=== PATIENT | female | born 2000 | race African-American/Black ===

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

== ENCOUNTER → 2022-02-01 | Outpatient (CLI) | payer MEDICAID, SELFPAY ==
[2022-02-01 16:14] LABS: Erythrocyte Sedimentation Rate 8 mm/hr (0-30)
[2022-02-01 16:17] LABS: Absolute Lymphocyte Count 2.48 X10^3/uL (0.83-4.51); Absolute Neutrophil Count 3.3 X10^3/uL (2.0-7.7); Basophil# 0.05 X10^3/uL; Basophil% 0.8 % (0-1); Eosinophils% 3.2 % (0-5); Hematocrit 35.7 % (37-47); Hemoglobin 11.3 g/dL (12.0-15.0); Lymphocyte # 2.48 X10^3/ul (0.83-4.51); Lymphocyte % 39.5 % (19-41); Mean Corp Hgb Conc 31.7 g/dL (32-36); Mean Corpuscular Hgb 27.7 pg (27.0-32.0); Mean Corpuscular Volume 87.5 fL (81-99); Mean Platelet Vol. 11.8 fl (6.2-12.0); Monocyte# 0.27 X10^3/uL; Monocyte% 4.3 % (0-10); NRBC Flagged by Analyzer 0 % (0-5); Neutrophil # 3.26 X10^3/uL (2.7-7.7); Neutrophil % 51.9 % (47-70); Platelet Count 278 K/mm3 (150-450); RBC Distribution Width CV 12.3 % (11.6-14.6); RBC Distribution Width SD 39.7 fl (35.1-43.9); Red Blood Count 4.08 M/mm3 (4.2-5.4); White Blood Count 6.3 K/mm3 (4.4-11.0)
[2022-02-01 16:35] LABS: Vitamin B12 679 pg/mL (211-911); Vitamin D,25 Hydroxy 10.5 ng/mL
[2022-02-01 16:42] LABS: ALB/GLOB Ratio 1.1 RATIO (0.9-2.4); AST(SGOT) 7 U/L (15-37); Alanine Aminotransfer ALT/SGPT 19 U/L (13-56); Albumin, Serum 3.9 g/dL (3.2-5.0); Alkaline Phosphatase 67 U/L (45-117); Anion Gap 5 (5-15); BUN 6 mg/dL (7-18); BUN/Creat Ratio 7.7 RATIO (10-20); CRP < 2.90 mg/L (0.0-3.0); Calcium,Total 8.5 mg/dL (8.5-10.1); Chloride 107 mmol/L (98-107); Creatinine, Serum 0.78 mg/dL (0.55-1.02); EST Glomerular Filtration Rate 100 mL/min (>60); Est Glom Filt Rate - Afr Amer 121 mL/min (>60); Free T3 2.8 pg/mL (2.18-3.98); Globulin 3.7 g/dL (2.2-4.2); Glucose 84 mg/dL (74-106); LDH 133 U/L (84-246); Potassium 3.9 mmol/L (3.5-5.1); Protein, Total 7.6 g/dL (6.4-8.2); Sodium Level 138 mmol/L (136-145); T4 Free Direct 1.05 ng/dL (0.76-1.46); Thyroid Stim Hormone (TSH) 1.26 uIU/mL (0.358-3.74)
[2022-02-03 13:08] LABS: Anti-Centromere B Ab <0.2 AI (0.0-0.9); Anti-Chromatin <0.2 AI (0.0-0.9); Anti-Jo <0.2 AI (0.0-0.9); Anti-Scleroderma-70 AB <0.2 AI (0.0-0.9); RNP Ab <0.2 AI (0.0-0.9); SJOGREN'S Anti-SS-A test < 0.2 AI (0.0-0.9); SJOGREN'S Anti-SS-B test < 0.2 AI (0.0-0.9); Smith Ab <0.2 AI (0.0-0.9)
[2022-02-03 15:08] LABS: Endomysial Antibody IgA Negative (Negative)
[2022-02-03 15:30] LABS: Anti-dsDNA Ab <1 IU/mL (0-9)
[2022-02-03 15:34] LABS: Immunoglobulin A 217 mg/dL (87-352); t-Transglutaminase IgA <2 U/mL (0-3)
[2022-02-11 14:10] LABS: Albumin 4.3 g/dL (2.9-4.4); Alpha-1-Globulins 0.2 g/dL (0.0-0.4); Alpha-2-Globulins 0.7 g/dL (0.4-1.0); Cytoplasmic Ab (C-ANCA) <1:20 titer (Neg:<1:20); Gamma Globulin 1.5 g/dL (0.4-1.8); Immunoglobulin A 201 mg/dL (87-352); Immunoglobulin E 82 IU/mL (6-495); Immunoglobulin G 1611 mg/dL (719-1475); Immunoglobulin M 40 mg/dL (58-230); PROEL- TOTAL PROTEIN 7.5 g/dL (6.0-8.5)
[2022-02-12 07:52] LABS: Perinuclear Ab (P-ANCA) <1:20 titer (Neg:<1:20)
== END | disposition home or self-care (01) ==
PROVIDERS: Visit Provider Internal Medicine Gastroenterology
DX: R19.5 Other fecal abnormalities (principal)
CPT/HCPCS: 36415; 80053; 82306; 82607; 82784; 82785; 83516; 83615; 84165; 84439; 84443; 84481; 85025; 85652; 86140; 86225; 86235; 86255; 86256; 86334

== ENCOUNTER → 2023-09-25 | Outpatient (CLI) | payer MEDICAID, SELFPAY ==
[2023-09-25 09:27] LABS: Mean Corp Hgb Conc 32.4 g/dL (32-36); Mean Corpuscular Hgb 27.3 pg (27.0-32.0); Mean Corpuscular Volume 84.4 fL (81-99); Platelet Count 206 K/mm3 (150-450); RBC Distribution Width CV 11.9 % (11.6-14.6); RBC Distribution Width SD 36.3 fl (35.1-43.9); Red Blood Count 4.03 M/mm3 (4.2-5.4); White Blood Count 7.1 K/mm3 (4.4-11.0)
[2023-09-25 10:19] LABS: hCG Titer Quant., Serum 69321 mIU/mL (1-3)
== END | disposition home or self-care (01) ==
LOC: LAB.FUTURE 08:31 → LAB 08:34
PROVIDERS: Referring Provider Obstetrics & Gynecology; Visit Provider Obstetrics & Gynecology
DX: O20.0 Threatened abortion (principal); Z3A.00 Weeks of gestation of pregnancy not specified
CPT/HCPCS: 36415; 84702; 85027

== ENCOUNTER → 2024-01-22 | Outpatient (CLI) | payer MEDICAID, SELFPAY ==
[2024-01-22 15:34] LABS: Absolute Lymphocyte Count 1.66 X10^3/uL (0.83-4.51); Absolute Neutrophil Count 6.2 X10^3/uL (2.0-7.7); Basophil# 0.03 X10^3/uL; Basophil% 0.4 % (0-1); Eosinophils% 1.2 % (0-5); Hematocrit 28.9 % (37-47); Hemoglobin 9.1 g/dL (12.0-15.0); Lymphocyte # 1.66 X10^3/ul (0.83-4.51); Lymphocyte % 19.6 % (19-41); Mean Corp Hgb Conc 31.5 g/dL (32-36); Mean Corpuscular Hgb 27.4 pg (27.0-32.0); Mean Platelet Vol. 11.9 fl (6.2-12.0); Monocyte# 0.46 X10^3/uL; Monocyte% 5.4 % (0-10); NRBC Flagged by Analyzer 0 % (0-5); Neutrophil # 6.17 X10^3/uL (2.7-7.7); Neutrophil % 72.7 % (47-70); Platelet Count 198 K/mm3 (150-450); RBC Distribution Width CV 12.3 % (11.6-14.6); RBC Distribution Width SD 38.9 fl (35.1-43.9); Red Blood Count 3.32 M/mm3 (4.2-5.4); White Blood Count 8.5 K/mm3 (4.4-11.0)
[2024-01-22 15:58] LABS: Glucose Challenge Gest 1H 50g 90 mg/dL (70-140)
[2024-01-22 16:21] LABS: Syphilis Antibodies Non-reactive
== END | disposition home or self-care (01) ==
LOC: LAB 13:18
PROVIDERS: Referring Provider Advanced Practice Midwife; Visit Provider Advanced Practice Midwife
DX: Z34.02 Encounter for supervision of normal first pregnancy, second trimester (principal); Z3A.25 25 weeks gestation of pregnancy
CPT/HCPCS: 36415; 82950; 85025; 86780

== ENCOUNTER 2024-03-15 05:31 | Inpatient (IN) | payer MEDICAID, SELFPAY ==
[2024-03-15] VITALS (48 sets, daily range): BP systolic 101–129; BP diastolic 50–79; PULSE 75–130; RESP 16–20; TEMP 36.3–37; O2SAT 77–100; BMI 25.9
[2024-03-15 05:12] LABS: ROM Internal Control Test YES-OK TO RESULT pt. (Internal QC)
[2024-03-15 05:13] LABS: ROM Patient Test POSITIVE (Negative); Record Kit Lot#, ROM+ K1972
[2024-03-15] MEDS: 0.9% Saline Lock 10 ML Syringe IV ×2 (05:50→06:44)
[2024-03-15] MEDS: Penicillin G Pot 5,000,000 UNITS in 0.9% Normal Saline (100mL MB+) 100 ML 150 UNITS IV (05:59)
[2024-03-15] MEDS: miSOPROStol 25 MCG TABLET PO (06:11)
[2024-03-15] MEDS: Betamethasone/Betamethasone 30 MG/5 ML Vial 12 MG IM (06:19)
[2024-03-15 06:28] LABS: Absolute Lymphocyte Count 2.62 X10^3/uL (0.83-4.51); Absolute Neutrophil Count 5.9 X10^3/uL (2.0-7.7); Basophil# 0.05 X10^3/uL; Basophil% 0.5 % (0-1); Eosinophil# 0.14 X10^3/uL; Eosinophils% 1.5 % (0-5); Hematocrit 31.2 % (37-47); Hemoglobin 10.1 g/dL (12.0-15.0); Lymphocyte # 2.62 X10^3/ul (0.83-4.51); Lymphocyte % 27.9 % (19-41); Mean Corp Hgb Conc 32.4 g/dL (32-36); Mean Corpuscular Hgb 26.9 pg (27.0-32.0); Mean Corpuscular Volume 83.2 fL (81-99); Mean Platelet Vol. 12.4 fl (6.2-12.0); Monocyte# 0.55 X10^3/uL; Monocyte% 5.9 % (0-10); NRBC Flagged by Analyzer 0 % (0-5); Neutrophil # 5.89 X10^3/uL (2.7-7.7); Neutrophil % 62.6 % (47-70); Platelet Count 218 K/mm3 (150-450); RBC Distribution Width CV 12.9 % (11.6-14.6); RBC Distribution Width SD 38.5 fl (35.1-43.9); Red Blood Count 3.75 M/mm3 (4.2-5.4); White Blood Count 9.4 K/mm3 (4.4-11.0)
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
[2024-03-15 07:48] LABS: Syphilis Antibodies Non-reactive
[2024-03-15 08:07] LABS: Amphetamine Urine VISTA NEGATIVE (<1000 ng/mL); Barbiturate Urine VISTA NEGATIVE (< 200 ng/mL); Benzodiazepine Urine VISTA NEGATIVE (< 200 ng/mL); Cocaine Urine VISTA NEGATIVE (< 300 ng/mL); Ecstacy Urine VISTA NEGATIVE (< 500 ng/mL); Methadone Urine VISTA NEGATIVE (< 300 ng/mL); PCP Urine VISTA NEGATIVE (< 25 ng/mL); THC Urine VISTA POSITIVE (< 50 ng/mL); Vista UDS pH Range 5
[2024-03-15] MEDS: Lactated Ringers 1,000 ML 50 ML IV (09:10)
[2024-03-15] MEDS: Lactated Ringers 1,000 ML 999 ML IV (09:11)
[2024-03-15 09:22] LABS: Group B Strep DNA By PCR Negative (Negative); Internal Control PASS; Probe Check PASS; Specimen Processing Control PASS
[2024-03-15] MEDS: fentaNYL-bupivacaine (epidural) 100 ML BAG EPIDURAL (09:51)
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
[2024-03-15] MEDS: Penicillin G 3,000,000 Units 50 ML 100 UNITS IV (10:24)
--- NOTE | 2024-03-15 11:26 | PLAC_PTH ---
PATIENT: SHANE GIBBS LOC: WP U#:[id number] AGE/SX: ROOM: WP007 RE03/15/[address]: Dr. Felisha Camarena DO : 2000 BED: 1 DIS: 03/17/2024 SPEC #: [id number] RECD: 03/15/24 12:36 STATUS: CHRISTIANO ENGLISH #: [id number] IRMA: 03/15/24 11:[address]: Felisha Camarena DEPT: SURGICAL PATHOLOGY RECD BY: Osito Bravo ENTERED: 03/17/24 10:02 SP TYPE: PLACENTA OTHR DR: Delmi [facility] Tissues: Placenta, NOS Procedures: Surgery Specimen Level V HEADER OPERATION: Vaginal delivery PRE-OP DIAGNOSIS: TISSUE SUBMITTED: Placenta MICROSCOPIC DIAGNOSIS Placenta: Placental disc - third trimester placenta (419 gm). Membranes - no pathologic diagnosis. Umbilical cord - three blood vessels and no pathologic diagnosis. SJ: 03/18/2024 MICROSCOPIC DESCRIPTION Slides are reviewed. GROSS DESCRIPTION SPECIMEN: PLACENTA / CLINICAL INFORMATION: A. Weight: 2.39 kg B. Gestational Age: 35 weeks C. Sex: Male PLACENTAL WEIGHT (POST FIXATION): 419 gm PLACENTAL DIMENSIONS: 15 x 15 x 3 cm PLACENTAL SHAPE: Usual ovoid PLACENTAL WEIGHT FOR GESTATIONAL AGE: Within 10-99th percentile MEMBRANES - Present A. Insertion: Marginal B. Site of rupture from edge: 3 cm from edge of placental disc C. Color of membrane: Aguilar-humphreys D. Abnormalities: None UMBILICAL CORD - Present A. Color: Aguilar-humphreys B. Insertion: Marginal C. Length: 40 cm D. Diameter: 1 cm E. Number of vessels: Three F. Abnormalities: None PLACENTAL DISC - Present A. Color of surface: Aguilar-humphreys B. surface abnormalities: None C. Maternal cotyledons: Intact with minimal tears D. Attached retro placental clot: No clot E. Cut surface: Dark red and spongy F. Lesions: None G. Separate clot: Absent SECTIONS SUBMITTED: 1. Membrane roll 2. Cord, maternal end 3. Cord, end 4. Placental disc, and maternal surfaces 5. Placental disc, and maternal surfaces 6. Placental disc, and maternal surfaces /SIERRA:shawna 03/17/24 TC:4 CPT: 34993
--- NOTE | 2024-03-15 11:26 | PLAC_PTH ---
PATIENT: SHANE GIBBS LOC: WP U#:[id number] AGE/SX: ROOM: WP007 RE03/15/[address]: Dr. Felisha Camarena DO : 2000 BED: 1 DIS: 03/17/2024 SPEC #: [id number] RECD: 03/15/24 12:36 STATUS: CHRISTIANO ENGLISH #: [id number] IRMA: 03/15/24 11:[address]: Felisha Camarena DEPT: SURGICAL PATHOLOGY RECD BY: Osito Bravo ENTERED: 03/17/24 10:02 SP TYPE: PLACENTA OTHR DR: Del[facility] Tissues: Placenta, NOS Procedures: Surgery Specimen Level V HEADER OPERATION: Vaginal delivery PRE-OP DIAGNOSIS: TISSUE SUBMITTED: Placenta MICROSCOPIC DIAGNOSIS Placenta: Placental disc - third trimester placenta (419 gm). Membranes - no pathologic diagnosis. Umbilical cord - three blood vessels and no pathologic diagnosis. SJ: 03/18/2024 MICROSCOPIC DESCRIPTION Slides are reviewed. GROSS DESCRIPTION SPECIMEN: PLACENTA / CLINICAL INFORMATION: A. Weight: 2.39 kg B. Gestational Age: 35 weeks C. Sex: Male PLACENTAL WEIGHT (POST FIXATION): 419 gm PLACENTAL DIMENSIONS: 15 x 15 x 3 cm PLACENTAL SHAPE: Usual ovoid PLACENTAL WEIGHT FOR GESTATIONAL AGE: Within 10-99th percentile MEMBRANES - Present A. Insertion: Marginal B. Site of rupture from edge: 3 cm from edge of placental disc C. Color of membrane: Aguilar-humphreys D. Abnormalities: None UMBILICAL CORD - Present A. Color: Aguilar-humphreys B. Insertion: Marginal C. Length: 40 cm D. Diameter: 1 cm E. Number of vessels: Three F. Abnormalities: None PLACENTAL DISC - Present A. Color of surface: Aguilar-humphreys B. surface abnormalities: None C. Maternal cotyledons: Intact with minimal tears D. Attached retro placental clot: No clot E. Cut surface: Dark red and spongy F. Lesions: None G. Separate clot: Absent SECTIONS SUBMITTED: 1. Membrane roll 2. Cord, maternal end 3. Cord, end 4. Placental disc, and maternal surfaces 5. Placental disc, and maternal surfaces 6. Placental disc, and maternal surfaces /SIERRA:shawna 03/17/24 TC:4 CPT: 03867
[2024-03-15] MEDS: Oxytocin 10 UNITS/ML Vial IM (11:38)
--- NOTE | 2024-03-15 11:55 | EX.PCM.OBVAG ---
Assessment & Plan (1) Vaginal delivery: Vaginal Delivery Maternal Presentation Maternal Presentation: Spontaneous Rupture of Membranes Type of Induction: Cytotec (one dose) Medical Reason for Induction: Premature Rupture of Membranes Vaginal Delivery Information Procedure Performed: Spontaneous Vaginal Delivery Surgeon/Practitioner: Felisha Camarena Date of Procedure: 03/15/24 Pre-Procedure Diagnosis: 35 week gestation, PPROM Post-Procedure Diagnosis: As above Type of anesthesia: Epidural Special Medications: None Estimated Blood Loss: 100 Fluids Replaced: N/A Findings Description of procedure: Patient complete and pushing initially in right lateral position, and then dorsal lithotomy. Head of delivered in KG position. Shoulders and body delivered spontaneously without any traction, force or delay. A vigorous VMI was placed on maternal abdomen. The cord was clamped and cut after a 60 second delay by the FOB. Cord blood obtained. Cord gases unable to be obtained. Placenta spontaneously delivered and was normal appearing, and intact with a 3VC. Patient initially declining Pitocin but passing small blood clots with fundal massage so agreeable to IM Pitocin. IM Pitocin given. Fundus firm and bleeding scant. A left labial laceration was noted to be bleeding. Two interrupted stitches were placed using 3-0 Vicryl to achieve hemostasis. Fundus remained firm and bleeding scant. Sponge counts were correct and a vaginal sweep performed. Procedure findings: Vigorous VMI in KG position. Apgars 9, 9. Left labial laceration. Presentation: Vertex Amniotic Membrane Rupture Type: Spontaneous Amniotic Fluid Description: Clear Placental Delivery Description: Spontaneous Placenta Disposition: Sent to Pathology Cord Vessel Description: 3 Vessels Cord Entanglement: None A Gender: Male (1 minute): 9 (5 minute): 9 Delayed Cord Clamping: Yes Learning Support Resource Room Teacher dinkey mechanic: No Post Vaginal Deli Medications given after delivery: IM Pitocin Episiotomy Description: None Complication Complications: No
[2024-03-16 00:10] VITALS: BP 124/78; PULSE 87; RESP 16; TEMP 36.9; O2SAT 99
[2024-03-16 04:55] VITALS: BP 134/77; PULSE 69; RESP 16; TEMP 36.6; O2SAT 100
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
[2024-03-16 07:48] VITALS: BP 97/64; PULSE 93; RESP 16; TEMP 37; O2SAT 100
[2024-03-16 14:00] VITALS: BP 112/59; PULSE 66; RESP 18; TEMP 36.6; O2SAT 99
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
--- NOTE | 2024-03-16 15:15 | CASEMGMT ---
Social Work Assessment Labor and Delivery Unit Patient Address: [address], [place] [address] Phone number: Date of Referral: 03/15/2024 Time of Referral: 07:19 Referred By: Felisha Camarena Date of Intervention: 03/16/2024 Time of Intervention: 15:17 Reason for Referral: Other: History of marijuana use, parents are addicts/alcoholics/mental health History obtained from: Medical records, and mother of baby (MOB). Household composition: MOB (Agueda, age 21), Father of baby (FOB) (Shaheed Jett, age 21) and son Shaheed Jett Jr., born 03/15/2024 Patient's parent/guardian status: MOB and FOB have been together for almost 3 years and are engaged to be on March 262024. ?Both are actively involved and will be providing care for baby. MOB denied any concerns with domestic violence and described a positive and supportive relationship with the FOB. Medical History: : 1, Para, now 1. MOB received care through [facility] beginning at 13 weeks, 4 days and appointments were observed to be consistent/routine. Apgars: 9 and 9. Weight: 5lbs, 4oz. Geographic Information System Surveyor: Tentative: Dr. Manzo through [facility] in [place] however MOB reported this may change. ? Educational Status: MOB denied any issues or concerns with reading or writing either with herself or with the FOB. MOB has had some college at the [employer] and is planning to go back to college and graduate and the FOB is currently enrolled in college and is expected to graduate in July of 2024. Financial Status: MOB reported their income is sufficient to meet the needs of their family at this time. MOB is planning on being a [id number] mom for now and the FOB also works signal timer selling [employer]. FOB?s work schedule is stated to be flexible. Infant Supplies: MOB reported she and the FOB are in the process of securing all the supplies they need for baby. MOB reported she was not expecting to go into labor early and was supposed to be getting a car seat, a bassinet and more clothing for for Juan Carlos presents so the FOB was out getting these last minute things at the time the assessment was being completed. MOB reported has diapers and bottles and some clothing for and is working on getting a breast pump through the insurance [employer]. Childcare/Caregiver(s): TOBIAS identified herself as the person who will be the primary caregiver considering for now as a [id number] mom. The FOB will assist with childcare and support to the MOB during the times he is not working or in school. Transportation:? TOBIAS reported that both she as well as the FOB are both licensed drivers and have a reliable vehicle to take baby to and from all medical appointments. No transportation issues identified. Programs/Agencies Involved: TOBIAS is currently getting Medicaid through [email or web address] and [facility]. TOBIAS stated by the time she could apply for monge and food stamps that she and the FOB will be and they will be over-income for additional benefits. TOBIAS reported she used to be involved in counseling in order to get an ADHD diagnosis so she could concentrate more in school however hasn?t been to counseling since 2021. TOBIAS reported she used to be on Vyvanse however didn?t like the way it made her feel so she stopped taking it. No other agencies previously or currently involved. Children Services/Legal Issues:? Denied. Behavioral Health Issues: ??Mental Health History: TOBIAS reported she has a history of PTSD which is likely CPTSD, depression and anxiety. In September of 2023, TOBIAS reported she had started to feel hopeless, and had thoughts of wanting to self-harm however stated she has been able to since start engaging in self-care, engage in mental re-focusing and denied any current suicidal ideation. tar pot worker encouraged TOBIAS to get connected with a mental health therapist which MOB stated she is already in the process of attempting to secure. ??MOB denied needing any assistance at this time with getting connected. Substance Use History: TOBIAS?s UDS was positive for cannabinoids. MOB previously reported that she last used in March of 2023, MOB told this social worker palliative care that she last used in in September from this year and when social worker palliative care had a conversation about the timeframe of how long this will show up positive in this type of drug screen, TOBIAS admitted to ?hitting? the FOB?s brother?s pen that has a higher concentration of THC.? MOB stated she had lost her appetite and hadn?t been able to eat a lot and was hoping that would help.? MOB reported for the past 4 years, she used to smoke marijuana several times a day but has no plans of continuing to smoke marijuana. MOB stated she has realized that she needs to start working towards steps of addressing her mental health needs/trauma from the past rather than smoking marijuana to cover it up. MOB reported she also used to occasionally vape however reported she hasn?t vaped since May of 2023. MOB reported that the FOB smokes marijuana occasionally and also takes edibles. Probation Worker provided education. ??Family History: MOB stated both her mother and father were drug addicts, and that her mother used heavy drugs with the MOB in utero.? MOB reported her father has previously been arrested and charged with possession with intent to sell. [place]?s maternal grandmother (MGM) ?last August or September? and MOB doesn?t have any contact with her father who continues to reside in [place]. MOB reported she was raised by her maternal aunt which MOB described as traumatic and MOB denied any contact with her maternal aunt at this time.? MOB described herself as estranged from her family. ?MOB suspects her mother was autistic and ADHD and suspects her aunt is bi-polar however couldn?t confirm if these were ever formal diagnoses or not. FOB?s brother uses marijuana. No other reported family history of mental health or drug or alcohol abuse within the family. ?Drug Screens: MOB: Positive for cannabinoids on 03/15/24.? [place]: meconium results pending. ?tar pot worker administered the Lolita.? MOB?s score was 8. There was one part where MOB checked ?hardly ever? for thoughts of harming self which MOB confirmed was from September of 2023 which was already discussed. MOB confirmed no current SI. ?tar pot worker provided verbal education about the screening tool as well as scores to look out for in the future which MOB reported she understood. Family/Social Stressors: ?MOB has had a plan to finish college and has career goals for herself and struggled for a while adjusting to being and how having a baby would make it harder to accomplish those goals. No support on the maternal side of the family. Support Systems: Ample.? MOB identified her biggest supports as the FOB and FOB?s family (FOB?s mom, dad and 3 younger siblings). MOB also reported she has a friend group who is an added support. Depression/Shaken Baby/Safe Sleeping: tar pot worker provided verbal and written education on PPD, Safe Sleeping and Shaken Baby.? MOB verbalized an understanding. ??? ASSESSMENT: MOB provided consent to social work visit. Upon arrival, nurse was just leaving the room and handed to the MOB who began to swaddle and MOB held throughout the visit and kept talking about how beautiful was. MOB was verbally engaged, presented with a bright affect and was very cooperative.? MOB appeared to be attached and bonded to and was very gentle and attentive with . MOB reported feeling safe in her home and denied any previous or current domestic violence. Safe Plan of Care for infant related to substance use: MOB was educated about and marijuana use and encouraged patient to discuss with medial team possible implications for if MOB is still showing positive for drugs in her system to ensure that is not being passed on to . MOB reported she will have that conversation with her nurse and also stated she has made the decision to stop smoking marijuana so that she can focus on college and giving her the best life she can give him. ? PLAN:? Baby to be discharged home when ready. MOB reported the is going much better. ??tar pot worker also provided written information on depression, depression resources and Help Me Grow as additional resources offered by social worker palliative care which MOB accepted. No other services requested or indicated. Per required mandate, social worker palliative care will make a referral to Children Services due to MOB testing positive for drugs at . Bertha Gustafson, SUPERINTENDENT STEVEDORING, MANAGER PROGRAMMING
--- NOTE | 2024-03-16 18:13 | CASEMGMT ---
Social Work: Parachute Harness Rigger made phone contact with Kathrin from [facility] and made mandated referral. No referral number. Bertha Gustafson MSW SUPERVISOR ROVING DEPARTMENT
--- NOTE | 2024-03-16 18:13 | CASEMGMT ---
Social Work: Director Executive Communications made phone contact with Kathrin from [facility] and made mandated referral. No referral number. Bertha Gustafson MSW CHURCH COMMUNICATIONS ADMINISTRATOR
[2024-03-16 19:50] VITALS: BP 104/61; PULSE 74; RESP 16; TEMP 37
[2024-03-17 02:53] VITALS: BP 111/72; PULSE 76; RESP 16
--- NOTE | 2024-03-17 08:33 | PCM.PN.BLA ---
Progress Note Pain well-controlled. Average lochia. Physical Exam Const alert and no apparent distress Narrative: Fundus firm, below umbilicus. Assessment & Plan Assessment/Plan (1) Vaginal delivery: PLAN: Plan day #2 status post vaginal delivery at 35 weeks. Patient is doing well. is breast-feeding and doing well. Desires discharge home today.
--- NOTE | 2024-03-17 08:36 | DS.PCM_ITS ---
Providers Date of Admission: 03/15/24 Primary Care Physician: [facility] Reason For Visit: VAGINAL DELIVERY Diagnosis Discharge Diagnosis (1) Vaginal delivery: Status: Acute Code(s): O80 - Encounter for full-term uncomplicated delivery Plan day #2 status post vaginal delivery at 35 weeks. Patient is doing well. is breast-feeding and doing well. Desires discharge home today. Medications at Discharge Home Medications beef liver PO DAILY 03/15/24 vit no.95-ferrous fumarate 28 mg-folic acid 800 mcg tablet () 1 tab PO DAILY 03/15/24 acetaminophen 500 mg tablet (Acetaminophen Extra Strength) 1,000 mg (2 x 500 mg) PO Q8H PRN PRN fever or pain 30 days #60 tabs 03/17/24 ibuprofen 600 mg tablet 600 mg PO Q6H PRN Pain 30 days #60 TABLETS 03/17/24 Hospital Course Operations None Procedures None Summary of Care Provided Minutes Spent on Discharge: 21 Hospital Course: 23-year-old female admitted at 35 weeks for PPROM. She was admitted on 03/15/2024. She has spontaneous vaginal delivery on 03/15/2024. By day #2 she was ambulating, urinating had had a bowel movement was ready for discharge with routine instructions and follow-up. Follow-up in the office within 1 week or as needed. Weight / BMI Weight Weight: 75.296 kg Body Mass Index (BMI) 25.9 ABG / Lab / Microbiology Data 03/15/24 05:50 Laboratory: Laboratory Results - last 24 hr 03/15/24 06:51: Antibody Screen NEGATIVE D/C Instructions Discharge Diet: No restrictions May resume sexual activity in: 6 weeks Call your doctor if your incision/area has: Continuous Slow Oozing, Sudden Increased Bleeding, Foul Smelling Discharge and Swelling at the incision site Call your doctor if you observe: Fever of 101 or Higher and Inability to urinate DC O2, CPAP, BIPAP Needs Home O2 Discharge instructions: No Please Follow Up With: Felisha Camarena DO When: Follow up with our office in 1-2 and 6 weeks or as needed. call or send a [employer] message [phone] Meaningful Use Info Meaningful Use Meaningful Use Diagnoses (Choose all that apply): None applicable Ischemic Stroke Statin Dosing Therapy Reference: STATIN DOSE THERAPY REFERENCE: * Patients > 75 years receive moderate or high dose statin therapy. * Patients 75 years or YOUNGER should receive HIGH intensity statin dose unless contraindicated. You will be required to document reason for non-treatment if statin daily dose does not meet guidelines. HIGH DOSE STATIN THERAPY DAILY Atorvastatin > than or = to 40 mg Rosuvastatin > than or = to 20 mg Amlodipine + Atorvastatin > than or = to 2.5/40 mg Ezetimibe + Simvastatin 10/80 mg Simvastatin 80mg Discharge Plan Admission Admit Date/Time: 03/15/24 05:31 Primary Reason for Your Visit: Vaginal delivery Attending Provider: Felisha Camarena [facility] Orders/Prescriptions Prescriptions: New acetaminophen [Acetaminophen Extra Strength] 500 mg tablet 1,000 mg PO Q8H PRN PRN (Reason: fever or pain) 30 Days Qty: 60 0RF ibuprofen 600 mg tablet 600 mg PO Q6H PRN (Reason: Pain) 30 Days Qty: 60 1RF No Action beef liver PO DAILY PNV cmb#95-ferrous fumarate-FA [] 28 mg iron- 800 mcg tablet 1 tab PO DAILY [facility]: [facility] - Disposition Disposition (needs filled in before D/C Order can be placed): Home, Self Care
--- NOTE | 2024-03-17 08:36 | DS.PCM_ITS ---
Providers Date of Admission: 03/15/24 Primary Care Physician: Del[facility] Reason For Visit: VAGINAL DELIVERY Diagnosis Discharge Diagnosis (1) Vaginal delivery: Status: Acute Code(s): O80 - Encounter for full-term uncomplicated delivery Plan day #2 status post vaginal delivery at 35 weeks. Patient is doing well. is breast-feeding and doing well. Desires discharge home today. Medications at Discharge Home Medications beef liver PO DAILY 03/15/24 vit no.95-ferrous fumarate 28 mg-folic acid 800 mcg tablet () 1 tab PO DAILY 03/15/24 acetaminophen 500 mg tablet (Acetaminophen Extra Strength) 1,000 mg (2 x 500 mg) PO Q8H PRN PRN fever or pain 30 days #60 tabs 03/17/24 ibuprofen 600 mg tablet 600 mg PO Q6H PRN Pain 30 days #60 TABLETS 03/17/24 Hospital Course Operations None Procedures None Summary of Care Provided Minutes Spent on Discharge: 21 Hospital Course: 23-year-old female admitted at 35 weeks for PPROM. She was admitted on 03/15/2024. She has spontaneous vaginal delivery on 03/15/2024. By day #2 she was ambulating, urinating had had a bowel movement was ready for discharge with routine instructions and follow-up. Follow-up in the office within 1 week or as needed. Weight / BMI Weight Weight: 75.296 kg Body Mass Index (BMI) 25.9 ABG / Lab / Microbiology Data 03/15/24 05:50 Laboratory: Laboratory Results - last 24 hr 03/15/24 06:51: Antibody Screen NEGATIVE D/C Instructions Discharge Diet: No restrictions May resume sexual activity in: 6 weeks Call your doctor if your incision/area has: Continuous Slow Oozing, Sudden Increased Bleeding, Foul Smelling Discharge and Swelling at the incision site Call your doctor if you observe: Fever of 101 or Higher and Inability to urinate DC O2, CPAP, BIPAP Needs Home O2 Discharge instructions: No Please Follow Up With: Felisha Camarena DO When: Follow up with our office in 1-2 and 6 weeks or as needed. call or send a [employer] message [phone] Meaningful Use Info Meaningful Use Meaningful Use Diagnoses (Choose all that apply): None applicable Ischemic Stroke Statin Dosing Therapy Reference: STATIN DOSE THERAPY REFERENCE: * Patients > 75 years receive moderate or high dose statin therapy. * Patients 75 years or YOUNGER should receive HIGH intensity statin dose unless contraindicated. You will be required to document reason for non-treatment if statin daily dose does not meet guidelines. HIGH DOSE STATIN THERAPY DAILY Atorvastatin > than or = to 40 mg Rosuvastatin > than or = to 20 mg Amlodipine + Atorvastatin > than or = to 2.5/40 mg Ezetimibe + Simvastatin 10/80 mg Simvastatin 80mg Discharge Plan Admission Admit Date/Time: 03/15/24 05:31 Primary Reason for Your Visit: Vaginal delivery Attending Provider: Felisha Camarena [facility] Orders/Prescriptions Prescriptions: New acetaminophen [Acetaminophen Extra Strength] 500 mg tablet 1,000 mg PO Q8H PRN PRN (Reason: fever or pain) 30 Days Qty: 60 0RF ibuprofen 600 mg tablet 600 mg PO Q6H PRN (Reason: Pain) 30 Days Qty: 60 1RF No Action beef liver PO DAILY PNV cmb#95-ferrous fumarate-FA [] 28 mg iron- 800 mcg tablet 1 tab PO DAILY [facility]errals / [facility] - Disposition Disposition (needs filled in before D/C Order can be placed): Home, Self Care
[2024-03-17 10:30] VITALS: BP 100/67; PULSE 90; RESP 16; TEMP 37.1; O2SAT 98
[2024-03-17 16:00] VITALS: BP 106/69; PULSE 82; RESP 16; TEMP 36.8; O2SAT 100
[2024-03-18 06:05] LABS: Pathology Specimen OB SEE PATHOLOGY REPORT
== END 2024-03-17 16:50 | disposition home or self-care (01) | DRG 560 ==
LOC: WP 05:44
PROVIDERS: Admitting Provider Obstetrics & Gynecology; Referring Provider Obstetrics & Gynecology; Visit Provider Obstetrics & Gynecology
DX: O42.013 Preterm premature rupture of membranes, onset of labor within 24 hours of rupture, third trimester (principal); Z37.0 Single live birth; O99.344 Other mental disorders complicating childbirth; D56.3 Thalassemia minor; F32.A Depression, unspecified; F90.9 Attention-deficit hyperactivity disorder, unspecified type; O99.02 Anemia complicating childbirth; O70.0 First degree perineal laceration during delivery; Z3A.35 35 weeks gestation of pregnancy
CPT/HCPCS: 59025; 59050; 80307; 84112; 85025; 86780; 86850; 86900; 86901; 87081; 87653; 88307; 99221; J7120; A4216; G0378; J0702